=== PATIENT | female | born 1960 | race African-American/Black ===

== ENCOUNTER 2016-12-14 09:25 | Emergency (ER) | payer MEDICAID ==
[2016-12-14 09:29] VITALS: BP 163/92; BMI 36.7
--- NOTE | 2016-12-14 09:41 | DR.GENAD ---
HPI - PCP Primary Care Physician: DR. SINCLAIR - Complaint/Symptoms Chief Complaint Doctors Comments: Patient admits to chronic low back pain for minimal two years, presently on cyclobenzapin for muscle relaxant. She also complains of chronic rib fractures of the left side. Chief Complaint:: PATIENT C/O LEFT HIP,BACK AND SIDE PAIN. THAT HAS BEEN HURTING FOR A WHILE - Source History Provided: Patient - Mode of Arrival Mode of Arrival: Ambulatory - Timing Onset of Chief Complaint: 08/25/16 PMH - PMH Past Medical History: Yes Past Medical History: Asthma, Diabetes, Headaches, Hypertension Past Surgical History: Yes Surgical History: Appendectomy, PICKLE PUMPER Surgery - Family History History of Family Medical Conditions: Yes Family Medical History: Diabetes Mellitus, Cancer, [place], Coronary Artery Disease, Heart Failure, Sudden Cardiac , Hypertension - Social History Does patient currently use any type of tobacco product: No Have you used tobacco products in the last 12 months: No Type of Tobacco Use: None Does any household member use tobacco: No Alcohol Use: None Do you use any recreational Drugs:: No Lives With: Family Lives Where: Home - infectious screening In the last 2 months have you had wt loss of >10#?: NO Have you had fever, night sweats or hemotysis?: No Have you traveled outside the country in the last 6 months?: No Isolation: Standard ROS - Review of Systems Constitutional: No Symptoms Reported Eyes: No Symptoms Reported ENTM: No Symptoms Reported Respiratoy: No Symptoms Reported Cardiovascular: No Symptoms Reported Gastrointestinal/Abdominal: No Symptoms Reported Genitourinary: No Symptoms Reported Neurological: No Symptoms Reported Musculoskeletal: Back Pain Integumentary: No Symptoms Reported Hematologic/Lymphatic: No Symptoms Reported Endocrine: No Symptoms Reported Psychiatric: No Symptoms Reported All Other Systems: Reviewed and Negative PE - Vital Signs Vitals: Temperature 98.9 F Pulse Rate 76 Respiratory Rate 20 Blood Pressure [Right Arm] 172/82 Blood Pressure [Left Arm] 176/80 Blood Pressure 163/92 O2 Sat by Pulse Oximetry 99 - General Limitations: No Limitations General Appearance: Alert, In No Apparent Distress - Head Head Exam: Normal Inspection, Atraumatic - Eyes Eye exam: Normal Appearance, PERRL, EOMI - ENT ENT Exam: Normal Exam External Ear Exam: Normal External Inspection TM/Canal Exam: Bilateral Normal Nose Exam: Normal Nose Exam Mouth Exam: Normal Inspection - Neck Neck Exam: Normal Inspection - Chest Chest Inspection: Normal Inspection - Respiratory Respiratory Exam: Normal Lung Sounds Bilat Respiratory Exam: Bilateral Clear to Auscultation - Cardiovascular Cardiovascular Exam: Regular Rate, Normal Rhythm - Abdominal Exam Abdominal Exam: Normal Inspection Abdominal Tenderness: negative: RUQ, RLQ, LUQ, LLQ, Epigastrium, Suprapubic, Diffuse, Mild, Moderate, Severe, Other - Extremities Extremities Exam: Normal Inspection - Back Back Exam: Vertebral Tenderness (low lumbar) - Neurologic Neurological Exam: Alert, Oriented X3, CN II-XII Intact - Psychiatric Psychiatric Exam: Normal Affect - Skin Skin Exam: Warm, Intact Course - Treatment Treatment: Review previous x ray results c/o osteoarthrisis of Lumbar spine, chronic rib fractures of 4-7. - Discharge Plan Condition: Stable - Follow ups/Referrals Follow ups/Referrals: BERNARDO FLOREZ [Primary Care Provider] - 3 days - Instructions
[2016-12-14] MEDS ORDERED: TORADOL 60 MG VIAL IM ONE (09:48)
[2016-12-14] MEDS ORDERED: TORADOL 60 MG VIAL ONE (09:56)
== END 2016-12-14 10:27 | disposition home or self-care (01) ==
LOC: ER 09:25
DX: M25.552 Pain in left hip (principal); M54.5 Low back pain; M19.90 Unspecified osteoarthritis, unspecified site
CPT/HCPCS: 96372; 99282; J1885

== ENCOUNTER → 2016-12-26 | Outpatient (CLI) | payer MEDICAID ==
[2016-11-22 21:12] VITALS: BP 172/82
--- NOTE | 2016-12-26 11:24 | MG ---
Examination: Bilateral screening mammogram. Clinical history: Routine screening. Technique: Digital CC and MLO views of both breasts were obtained. Computer aided detection analysis was performed and used during the interpretation. Comparison: 12/24/2015. Findings: The breasts are composed of scattered fibroglandular densities. Benign-appearing calcifications are noted in the breasts bilaterally. A biopsy marking clip is present in the left breast. No suspicious mass, area of architectural distortion or suspicious cluster of microcalcifications is noted. Impression: 1. No mammographic evidence of malignancy. BI-RADS category 2-benign findings. Recommend routine annual screening mammogram. Diagnostic CAD was utilized and reviewed. * 0 (ZERO) - ASSESSMENT INCOMPLETE; ADDITIONAL IMAGING IS NEEDED. * 0C - ASSESSMENT INCOMPLETE, NEEDS ADDITIONAL IMAGING EVALUATION AND/OR PRIOR MAMMOGRAMS FOR COMPAR JUJU. * 1/1 (ONE) - NEGATIVE. * 2/II (TWO) - BENIGN FINDINGS. * 3/III (THREE) - PROBABLY BENIGN FINDING; SHORT INTERVAL FOLLOW-UP SUGGESTED. * 4/IV (FOUR) - SUSPICIOUS ABNORMALITY; BIOPSY SHOULD BE CONSIDERED. * 5/V - HIGHLY SUSPICIOUS OF MALIGNANCY; BIOPSY SHOULD BE PERFORMED. * 6/IV - KNOWN BIOPSY PROVEN MALIGNANCY-APPROPRIATE ACTION SHOULD BE TAKEN. A NEGATIVE X-RAY REPORT SHOULD NOT DELAY BIOPSY IF A DOMINANT OR CLINICALLY SUSPICIOUS MASS IS PRESENT; 4 TO 8 PERCENT OF CANCERS ARE NOT IDENTIFIED BY X-RAY. A NEGATIVE REPORT MAY REINFORCE THE CLINICAL IMPRESSION. ADENOSIS AND DENSE BREASTS MAY OBSCURE AN UNDERLYING NEOPLASM. Reported By:
== END ==
LOC: RAD 08:49
PROVIDERS: ATTEND Specialist
DX: Z12.31 Encounter for screening mammogram for malignant neoplasm of breast (principal)
CPT/HCPCS: 77067

== ENCOUNTER → 2017-01-11 | Outpatient (CLI) | payer MEDICAID ==
[2016-12-14 09:29] VITALS: BP 163/92
[2017-01-11 10:37] LABS: BASOPHILS # (AUTO) 0.1 X10^3/uL (0.0-0.1); EOSINOPHILS # (AUTO) 0.3 x10^3/uL (0.0-0.2); EOSINOPHILS % (AUTO) 3.8 % (0.9-2.9); HEMATOCRIT 33.4 % (36.0-47.0); HEMOGLOBIN 10.8 g/dL (12.0-16.0); LYMPHOCYTES # (AUTO) 2.5 X10^3/uL (1.3-2.9); LYMPHOCYTES % (AUTO) 37.5 % (21.0-51.0); MEAN CORPUSCULAR HEMOGLOBIN 24.6 pg (27.0-34.0); MEAN CORPUSCULAR HGB CONC 32.3 g/dL (33.0-35.0); MEAN CORPUSCULAR VOLUME 76.2 fL (80.0-100.0); MEAN PLATELET VOLUME 9.5 fL (7.4-11.0); MONOCYTES # (AUTO) 0.6 x10^3/uL (0.3-0.8); MONOCYTES % (AUTO) 9.3 % (0.0-13.0); NEUTROPHILS # (AUTO) 3.3 x10^3/uL (2.2-4.8); NEUTROPHILS % (AUTO) 48.4 % (42.0-75.0); PLATELET COUNT 353 X10^3/uL (150.0-450.0); RED BLOOD COUNT 4.38 X10^6/uL (3.5-5.4); RED CELL DISTRIBUTION WIDTH 17.3 % (11.6-16.5); WHITE BLOOD COUNT 6.7 X10^3/uL (3.6-10.0)
[2017-01-11 10:37] LABS: BILIRUBIN,URINE NEGATIVE (NEGATIVE); BLOOD/HEMOGLOBIN,URINE NEGATIVE (NEGATIVE); GLUCOSE, URINE NEGATIVE (NEGATIVE); KETONES,URINE NEGATIVE (NEGATIVE); LEUKOCYTE ESTERASE ,URINE 2+ (NEGATIVE); NITRITES,URINE NEGATIVE (NEGATIVE); PROTEIN,URINE 1+ (NEGATIVE); UROBILINOGEN,URINE NORMAL (NORMAL)
[2017-01-11 10:40] LABS: SERUM PREGNANCY TEST, QUAL NEGATIVE <10 mIU/mL
--- NOTE | 2017-01-11 10:46 | RAD ---
HISTORY: Preop hysterectomy Study: Chest two views Comparison: November 03, 2016 Findings: The trachea is midline. The cardiac silhouette is unremarkable. The lungs are clear without focal infiltrate or effusion. The bony thorax is unremarkable. IMPRESSION: 1. No acute cardiopulmonary disease. Reported By:
[2017-01-11 10:47] LABS: APPEARANCE,URINE CLEAR (CLEAR); COLOR,URINE YELLOW (YELLOW); RBC,URINE NONE SEEN /HPF (NEGATIVE)
[2017-01-11 10:48] LABS: BACTERIA,URINE 1+ /HPF (NEGATIVE); SQUAMOUS EPITHELIAL CELL,UR MANY /HPF (NEGATIVE)
[2017-01-11 10:52] LABS: BLOOD UREA NITROGEN 14 mg/dL (7-18); CALCIUM 8.8 mg/dL (8.5-10.1); CARBON DIOXIDE 30.9 mmol/L (21-32); CHLORIDE 104 mmol/L (98-107); COR NA(FOR HYPERGLY) 143 mmol/L (136-145); CREATININE 0.93 mg/dL (0.55-1.02); GLUCOSE 174 mg/dL (65-99); SODIUM 141 mmol/L (136-145); eGFR BLACK RACES > 60 (>60); eGFR NON BLACK RACES > 60 (>60)
[2017-01-11 11:16] LABS: HYPOCHROMASIA SLIGHT; PLATELET MORPHOLOGY COMMENT NORMAL (NORMAL)
== END ==
LOC: LAB 09:17
PROVIDERS: ATTEND Specialist
DX: Z01.818 Encounter for other preprocedural examination (principal); Z01.810 Encounter for preprocedural cardiovascular examination; Z01.811 Encounter for preprocedural respiratory examination; R10.2 Pelvic and perineal pain; D25.9 Leiomyoma of uterus, unspecified
CPT/HCPCS: 36415; 71020; 80048; 81001; 84703; 85025; 85610; 85730; 86850; 86900; 86901; 93005; 93010

== ENCOUNTER 2017-01-16 06:19 | Inpatient (IN) | payer MEDICAID ==
[2017-01-16] MEDS ORDERED: NS 50 ML IV + SPIKE MINIBAG* 50 ML IV ONE (06:29)
[2017-01-16] MEDS ORDERED: D5 1/2 NS 1000 ML 1,000 ML IV ONE (06:30)
[2017-01-16] MEDS ORDERED: ANCEF VIAL 1 GM ONE (06:30)
[2017-01-16] MEDS ORDERED: FENTANYL INJ 250 mcg ONE (06:31)
[2017-01-16] MEDS ORDERED: DURAMORPH ONE (06:33)
[2017-01-16] MEDS ORDERED: ZEMURON ONE ×2 (06:33→10:07)
[2017-01-16] MEDS ORDERED: NS 1000 ML 1,000 ML ONE ×2 (06:33→07:50)
[2017-01-16 06:58] VITALS: BMI 36.7
[2017-01-16] MEDS ORDERED: ANCEF VIAL 1 GM 1 GM in NS 50 ML IV + SPIKE MINIBAG* 50 ML IV PRN (06:58)
[2017-01-16] MEDS ORDERED: D5 1/2 NS 1000 ML 1,000 ML IV SCH (06:58)
[2017-01-16 08:17] LABS: BILIRUBIN,URINE NEGATIVE (NEGATIVE); BLOOD/HEMOGLOBIN,URINE NEGATIVE (NEGATIVE); GLUCOSE, URINE NEGATIVE (NEGATIVE); KETONES,URINE NEGATIVE (NEGATIVE); LEUKOCYTE ESTERASE ,URINE NEGATIVE (NEGATIVE); NITRITES,URINE NEGATIVE (NEGATIVE); PROTEIN,URINE NEGATIVE (NEGATIVE); UROBILINOGEN,URINE NORMAL (NORMAL)
[2017-01-16 08:26] LABS: APPEARANCE,URINE CLEAR (CLEAR); COLOR,URINE YELLOW (YELLOW); RBC,URINE NONE SEEN /HPF (NEGATIVE); SQUAMOUS EPITHELIAL CELL,UR RARE /HPF (NEGATIVE)
[2017-01-16 08:27] LABS: AMORPHOUS SEDIMENT,UR 1+ /HPF (NEGATIVE); BACTERIA,URINE NEGATIVE /HPF (NEGATIVE)
[2017-01-16] MEDS ORDERED: NS IRRIGATION 1000 ML 1,000 ML IR ONE (09:05)
[2017-01-16] MEDS ORDERED: HumuLIN R SUBCUT PRN (09:14)
[2017-01-16] MEDS ORDERED: ZOFRAN INJ 4 MG VIAL IVP PRN ×2 (09:39→10:09)
[2017-01-16] MEDS ORDERED: REGLAN INJ 10 MG VIAL IVP PRN (09:39)
[2017-01-16] MEDS ORDERED: PHENERGAN INJ 25 MG IVP PRN (09:39)
[2017-01-16] MEDS ORDERED: BENADRYL INJ 50 MG VIAL IVP PRN ×2 (09:39→10:09)
[2017-01-16] MEDS ORDERED: DILAUDID INJ IVP PRN (09:39)
[2017-01-16] MEDS ORDERED: DILAUDID INJ ONE (09:44)
[2017-01-16] MEDS ORDERED: DILAUDID INJ IVP ONE ×2 (09:47→10:04)
[2017-01-16] MEDS ORDERED: NS 1000 ML 1,000 ML IV SCH (10:00)
[2017-01-16] MEDS ORDERED: VERSED ONE (10:07)
[2017-01-16] MEDS ORDERED: QUELICIN (OR ANECTINE) ONE (10:07)
[2017-01-16] MEDS ORDERED: REGLAN INJ 10 MG VIAL ONE (10:07)
[2017-01-16] MEDS ORDERED: SUPRANE IN ONE (10:07)
[2017-01-16] MEDS ORDERED: DIPRIVAN VIAL ONE (10:07)
[2017-01-16] MEDS ORDERED: NEOSTIGMINE INJ ONE (10:07)
[2017-01-16] MEDS ORDERED: XYLOCAINE 2 % (PLAIN) ONE (10:07)
[2017-01-16] MEDS ORDERED: EPHEDRINE SULFATE INJ ONE (10:07)
[2017-01-16] MEDS ORDERED: ROBINUL ONE (10:07)
[2017-01-16] MEDS ORDERED: TORADOL 30 MG VIAL IVP PRN (10:09)
[2017-01-16] MEDS: NS 1000 ML 1,000 ML IV SCH ×2 (13:23→21:02)
[2017-01-16] MEDS ORDERED: MORPHINE SULFATE PCA 30 MG IVP PRN (13:32)
[2017-01-16] MEDS ORDERED: SNACK - Diabetic Appropriate PO SCH (20:00)
[2017-01-16] MEDS: SNACK - Diabetic Appropriate PO SCH (21:05)
[2017-01-16] MEDS: HumuLIN R SUBCUT PRN (21:06)
[2017-01-17 05:07] LABS: BASOPHILS % (AUTO) 0.4 % (0.2-1.0); EOSINOPHILS # (AUTO) 0.1 x10^3/uL (0.0-0.2); EOSINOPHILS % (AUTO) 1.5 % (0.9-2.9); HEMATOCRIT 29.7 % (36.0-47.0); HEMOGLOBIN 9.5 g/dL (12.0-16.0); LYMPHOCYTES # (AUTO) 1.5 X10^3/uL (1.3-2.9); MEAN CORPUSCULAR HEMOGLOBIN 24.9 pg (27.0-34.0); MEAN CORPUSCULAR HGB CONC 32.1 g/dL (33.0-35.0); MEAN CORPUSCULAR VOLUME 77.6 fL (80.0-100.0); MEAN PLATELET VOLUME 9.9 fL (7.4-11.0); MONOCYTES # (AUTO) 1.1 x10^3/uL (0.3-0.8); MONOCYTES % (AUTO) 12.7 % (0.0-13.0); NEUTROPHILS % (AUTO) 68.4 % (42.0-75.0); PLATELET COUNT 287 X10^3/uL (150.0-450.0); RED BLOOD COUNT 3.83 X10^6/uL (3.5-5.4); RED CELL DISTRIBUTION WIDTH 18.1 % (11.6-16.5); WHITE BLOOD COUNT 8.8 X10^3/uL (3.6-10.0)
[2017-01-17 05:08] LABS: BLOOD UREA NITROGEN 14 mg/dL (7-18); CALCIUM 7.3 mg/dL (8.5-10.1); CARBON DIOXIDE 23.8 mmol/L (21-32); CHLORIDE 107 mmol/L (98-107); COR NA(FOR HYPERGLY) 144 mmol/L (136-145); CREATININE 1.03 mg/dL (0.55-1.02); GLUCOSE 228 mg/dL (65-99); SODIUM 141 mmol/L (136-145); eGFR BLACK RACES > 60 (>60); eGFR NON BLACK RACES 59 (>60)
[2017-01-17 05:46] LABS: ANISOCYTOSIS SLIGHT; HYPOCHROMASIA SLIGHT; MICROCYTOSIS SLIGHT; PLATELET MORPHOLOGY COMMENT NORMAL (NORMAL)
[2017-01-17] MEDS: NS 1000 ML 1,000 ML IV SCH ×2 (06:08→18:19)
[2017-01-17] MEDS: HumuLIN R SUBCUT PRN ×4 (06:09→21:34)
[2017-01-17] MEDS ORDERED: BACTROBAN CREAM ONE (07:43)
[2017-01-17] MEDS ORDERED: MOTRIN TAB 800 MG PO PRN (07:50)
[2017-01-17] MEDS: BACTROBAN OINT TOP SCH ×2 (08:06→14:20)
[2017-01-17] MEDS: TENORMIN PO SCH (10:10)
[2017-01-17] MEDS: COLACE CAP 100 MG PO SCH ×2 (10:10→21:34)
[2017-01-17] MEDS: HYDROCHLOROTHIAZIDE 12.5 MG CAP PO SCH (10:10)
[2017-01-17] MEDS: NORVASC TAB 10 MG PO SCH (10:11)
[2017-01-17] MEDS: PERCOCET TAB 5/325 MG PO PRN ×2 (12:03→18:25)
[2017-01-17] MEDS: GLUCOPHAGE PO SCH (17:10)
[2017-01-17] MEDS ORDERED: GLUCOPHAGE ONE (17:17)
[2017-01-17] MEDS: SNACK - Diabetic Appropriate PO SCH (21:36)
[2017-01-18] MEDS: BACTROBAN OINT TOP SCH ×2 (00:15→05:54)
[2017-01-18] MEDS: PERCOCET TAB 5/325 MG PO PRN ×2 (01:05→08:38)
[2017-01-18 05:48] LABS: HEMATOCRIT 29.2 % (36.0-47.0); HEMOGLOBIN 9.4 g/dL (12.0-16.0)
[2017-01-18] MEDS ORDERED: GLUCOPHAGE ONE (08:28)
[2017-01-18] MEDS: HYDROCHLOROTHIAZIDE 12.5 MG CAP PO SCH (08:37)
[2017-01-18] MEDS: NORVASC TAB 10 MG PO SCH (08:37)
[2017-01-18] MEDS: GLUCOPHAGE PO SCH (08:38)
[2017-01-18] MEDS: COLACE CAP 100 MG PO SCH (08:38)
[2017-01-18] MEDS: TENORMIN PO SCH (08:40)
[2017-01-18 12:47] VITALS: BP 181/82
== END 2017-01-18 12:30 | disposition home health service (06) | DRG 743 ==
LOC: MED/SURG 06:19
PROVIDERS: ADMIT Specialist; ATTEND Specialist
PROC: 0UTC0ZZ Resection of Cervix, Open Approach (ICD-10-PCS; 2017-01-16)
PROC: 0UT20ZZ Resection of Bilateral Ovaries, Open Approach (ICD-10-PCS; 2017-01-16)
PROC: 0UT70ZZ Resection of Bilateral Fallopian Tubes, Open Approach (ICD-10-PCS; 2017-01-16)
PROC: 0UT90ZZ Resection of Uterus, Open Approach (ICD-10-PCS; principal; 2017-01-16 07:30)
DX: D25.9 Leiomyoma of uterus, unspecified (principal); R10.2 Pelvic and perineal pain
CPT/HCPCS: 36415; 80048; 81001; 85014; 85018; 85025; 94760; A4222; J0330; J0690; J1170; J1815; J1885; J2001; J2250; J2271; J2710; J2765; J3010; J3490; J7042

== ENCOUNTER 2017-01-30 23:14 | Emergency (ER) | payer MEDICAID ==
[2017-01-30 23:22] VITALS: BP 194/89; BMI 35.9
--- NOTE | 2017-01-31 00:09 | DR.GENAD ---
HPI - PCP Primary Care Physician: Florez - Complaint/Symptoms Chief Complaint Doctors Comments: Patient had a hysterectomy two weeks ago; today sutures were removed; tonight the steri-strips came loose; now there is seperation of suture margins. Chief Complaint:: "I had a hysterectomy about two weeks ago and they just took the moiz out today. It has been draining a lot and it has came open." - Source History Provided: Patient - Mode of Arrival Mode of Arrival: Ambulatory - Timing Onset of Chief Complaint: 01/30/17 PMH - PMH Past Medical History: Yes Past Medical History: Asthma, Diabetes, Headaches, Hypertension Past Surgical History: Yes Surgical History: Appendectomy, Hysterectomy - Family History History of Family Medical Conditions: Yes Family Medical History: Diabetes Mellitus, Cancer, [place], Coronary Artery Disease, Sudden Cardiac , Hypertension - Social History Does patient currently use any type of tobacco product: No Have you used tobacco products in the last 12 months: No Type of Tobacco Use: None Does any household member use tobacco: No Alcohol Use: None Do you use any recreational Drugs:: No Lives With: Spouse Lives Where: Home - infectious screening In the last 2 months have you had wt loss of >10#?: NO Have you had fever, night sweats or hemotysis?: No Have you traveled outside the country in the last 6 months?: No Isolation: Standard ROS - Review of Systems Constitutional: No Symptoms Reported Eyes: No Symptoms Reported ENTM: No Symptoms Reported Respiratoy: No Symptoms Reported Cardiovascular: No Symptoms Reported Gastrointestinal/Abdominal: No Symptoms Reported Genitourinary: No Symptoms Reported Neurological: No Symptoms Reported Musculoskeletal: No Symptoms Reported Integumentary: Other (suture seperation) Hematologic/Lymphatic: No Symptoms Reported Endocrine: No Symptoms Reported Psychiatric: No Symptoms Reported All Other Systems: Reviewed and Negative PE - Vital Signs Vitals: Temperature 98.2 F Pulse Rate 84 Respiratory Rate 18 Blood Pressure [Right Arm] 181/82 Blood Pressure [Left Arm] 176/77 Blood Pressure 194/89 O2 Sat by Pulse Oximetry 97 - General Limitations: No Limitations General Appearance: Alert, In No Apparent Distress - Head Head Exam: Normal Inspection, Atraumatic - Eyes Eye exam: Normal Appearance, PERRL, EOMI - ENT ENT Exam: Normal Exam External Ear Exam: Normal External Inspection TM/Canal Exam: Bilateral Normal Nose Exam: Normal Nose Exam Mouth Exam: Normal Inspection Throat Exam: Normal Inspection - Neck Neck Exam: Normal Inspection, Full ROM - Chest Chest Inspection: Normal Inspection - Respiratory Respiratory Exam: Normal Lung Sounds Bilat Respiratory Exam: Bilateral Clear to Auscultation - Cardiovascular Cardiovascular Exam: Regular Rate, Normal Rhythm - Abdominal Exam Abdominal Exam: Normal Inspection, Other (seperation of suture lines from abdominal hysterectomy) Abdominal Tenderness: Mild - Extremities Extremities Exam: Normal Inspection, Full ROM - Back Back Exam: Normal Inspection - Neurologic Neurological Exam: Alert, Oriented X3, CN II-XII Intact - Psychiatric Psychiatric Exam: Normal Affect - Skin Skin Exam: Warm, Dry, Intact - Diagnosis Discharge Problem: Suture, burst Qualifiers: Encounter type: sequela Qualified Code(s): T81.31XS - Disruption of external operation (surgical) wound, not elsewhere classified, sequela - Discharge Plan Condition: Stable - Follow ups/Referrals Follow ups/Referrals: BERNARDO FLOREZ [Primary Care Provider] - 3 days - Instructions
== END 2017-01-31 00:23 | disposition home or self-care (01) ==
LOC: ER 23:14
DX: T81.31XS Disruption of external operation (surgical) wound, not elsewhere classified, sequela (principal)
CPT/HCPCS: 99282

== ENCOUNTER 2017-01-31 14:22 | Emergency (ER) | payer MEDICAID ==
[2017-01-31 14:33] VITALS: BP 179/91; BMI 30.9
--- NOTE | 2017-01-31 14:38 | DR.GENAD ---
HPI - PCP Primary Care Physician: ALEXANDREA STEWART - Complaint/Symptoms Chief Complaint:: PT SENT OVER FROM DR. LECHUGA'S OFFICE FOR TRANSFER OF PT WITH WOUND DEHISENCE.... PT STATES SHE COUGHED ON MONDAY AND SHE FELT A POP AND THAT HER PETE WERE REMOVED ON MONDAY AND SHE WENT TO DR. LECHUGA TODAY .. Self Treatment fo Chief Complaint: PT SEEN IN ER LAST NIGHT WITH C/O OF HER HYSTERECTOMY INCISION SITE OPENED AND HER WOUND WAS CARED OF ACCORDINGLY.. - Nurses notes reviewed Nurses Notes Review: Yes - Source History Provided: Patient, Other - Mode of Arrival Mode of Arrival: Ambulatory - Timing Onset of Chief Complaint: 01/29/17 Came on: Suddenly - Duration Duration: Constant How lon Duration: Days - Location Location: incision abdomin - Severity Severity: Moderate - Modifying Factors Worsens:: cough - Associated Signs and Symptoms Associated Signs and Symptoms: none PMH - PMH Past Medical History: Yes Past Medical History: Asthma, Diabetes, Headaches, Hypertension Past Surgical History: Yes Surgical History: Appendectomy, Hysterectomy - Family History History of Family Medical Conditions: Yes Family Medical History: Diabetes Mellitus, Cancer, [place], Coronary Artery Disease, Sudden Cardiac , Hypertension - Social History Does patient currently use any type of tobacco product: No Have you used tobacco products in the last 12 months: No Type of Tobacco Use: None Does any household member use tobacco: No Alcohol Use: None Do you use any recreational Drugs:: No Lives With: Family Lives Where: Home - infectious screening In the last 2 months have you had wt loss of >10#?: NO Have you had fever, night sweats or hemotysis?: No Have you traveled outside the country in the last 6 months?: No Isolation: Standard ROS - Review of Systems Constitutional: No Symptoms Reported Eyes: No Symptoms Reported ENTM: No Symptoms Reported Respiratoy: No Symptoms Reported Cardiovascular: No Symptoms Reported Gastrointestinal/Abdominal: No Symptoms Reported Genitourinary: No Symptoms Reported Neurological: No Symptoms Reported Musculoskeletal: No Symptoms Reported Integumentary: Wound (10 x 4 cm wound dehiscence) Hematologic/Lymphatic: No Symptoms Reported Endocrine: No Symptoms Reported Psychiatric: No Symptoms Reported All Other Systems: Reviewed and Negative PE - Vital Signs Vitals: Temperature 98.1 F Pulse Rate 72 Respiratory Rate 20 Blood Pressure [Right Arm] 181/82 Blood Pressure [Left Arm] 176/77 Blood Pressure 179/91 O2 Sat by Pulse Oximetry 98 - General Limitations: No Limitations General Appearance: Alert - Head Head Exam: Normal Inspection - Eyes Eye exam: Normal Appearance, EOMI. negative: Scleral Icterus, Conjunctival Injection - ENT ENT Exam: Normal Exam, Other (poor dentition) External Ear Exam: Normal External Inspection - Neck Neck Exam: Normal Inspection, Full ROM, Trachea Midline - Respiratory Respiratory Exam: negative: Accessory Muscle Use, Respiratory Distress - Abdominal Exam Abdominal Exam: Normal Bowel Sounds, Soft, Distention (obesity). negative: Normal Inspection, Tenderness, Guarding - Extremities Extremities Exam: Normal Inspection - Back Back Exam: Normal Inspection - Neurologic Neurological Exam: Alert, Oriented X3, CN II-XII Intact - Psychiatric Psychiatric Exam: Normal Mood - Skin Skin Exam: Normal Color. negative: Intact (10 x 4cm wound dehiscense) Course - Treatment Treatment: 1455: case discussed with Dr. lechuga and wants general surgeon consulted. - Consultation Called: 17:15 Call Returned: 17:15 Consultation Comments: case discussed with Dr. Martinez and will see patient in [facility]. - Diagnosis Discharge Problem: Dehiscence of closure of skin Qualifiers: Encounter type: initial encounter Qualified Code(s): T81.31XA - Disruption of external operation (surgical) wound, not elsewhere classified, initial encounter - Discharge Plan Condition: Stable - Follow ups/Referrals Follow ups/Referrals: RIAN LECHUGA [Primary Care Provider] - 3 days - Instructions - Patient Education Addl Reference Text: Go to [facility] do not eat.
== END 2017-01-31 17:45 | disposition home or self-care (01) ==
LOC: ER 14:33
DX: T81.31XA Disruption of external operation (surgical) wound, not elsewhere classified, initial encounter (principal)
CPT/HCPCS: 99282; 99285

== ENCOUNTER 2017-09-06 13:43 | Emergency (ER) | payer SELFPAY ==
[2017-09-06 13:46] VITALS: BP 183/88; BMI 37.4
--- NOTE | 2017-09-06 14:05 | DR.SOBA ---
HPI - Time Seen Time seen: 14:00 - Primary Care Physician Primary Care Physician: VIKKI - HPI Comment HPI Comment: GETTING WORSE. NO FEVER. SLIGHT CHEST PAIN. COUGH PRODUCTIVE, YELLOW SPUTUM. - Complaints Chief Complaint Doctors Comments: COUGH, WHEEZING AND SOB TIMES E DAYS. Chief Complaint:: PT. C/O SHORTNESS OF BREATH, COUGH, AND WHEEZING X 2 DAYS. - Reviewed Nurses Notes Reviewed: Yes - Source History Provided: Patient - Mode of Arrival Mode of Arrival: Ambulatory - Timing Onset of Chief Complaint: 09/04/17 - Context Onset:: With Light Exertion PE Risk Factors:: None History of:: Asthma Prehospital Care:: None - Modifying Factors Worsens:: Nothing Improves:: Nothing - Associated Signs and Symptoms Associated Signs and Symptoms: Wheeze, Cough, Nasal Congestion, Chest Pain - If Chest Pain Quality: Sharp Location: Chest Wall - If Cough Cough: Productive, Yellow PMH - PMH Past Medical History: Yes Past Medical History: Asthma, Diabetes, Headaches, Hypertension Past Surgical History: Yes Surgical History: Appendectomy, Hysterectomy - Family History History of Family Medical Conditions: Yes Family Medical History: Diabetes Mellitus, Cancer, [place], Coronary Artery Disease, Sudden Cardiac , Hypertension - Social History Does patient currently use any type of tobacco product: No Have you used tobacco products in the last 12 months: No Type of Tobacco Use: None Does any household member use tobacco: No Alcohol Use: None Do you use any recreational Drugs:: No Lives With: Family Lives Where: Home - infectious screening In the last 2 months have you had wt loss of >10#?: NO Have you had fever, night sweats or hemotysis?: No Have you traveled outside the country in the last 6 months?: No Isolation: Standard ROS - Review of Systems Constitutional: No Symptoms Reported. negative: Chills, Fever Eyes: No Symptoms Reported ENTM: Nose Congestion. negative: Ear Pain, Nose Discharge, Throat Pain Respiratoy: Productive Cough, Short of Breath, Wheezing. negative: Hemoptysis Cardiovascular: Chest Pain Gastrointestinal/Abdominal: No Symptoms Reported Genitourinary: No Symptoms Reported Neurological: No Symptoms Reported Musculoskeletal: No Symptoms Reported Integumentary: No Symptoms Reported Hematologic/Lymphatic: No Symptoms Reported Endocrine: No Symptoms Reported All Other Systems: Reviewed and Negative PE - Vital Signs Vitals: Temperature 97 F Pulse Rate 62 Respiratory Rate 17 Blood Pressure [Right Arm] 181/82 Blood Pressure [Left Arm] 176/77 Blood Pressure 183/88 O2 Sat by Pulse Oximetry 95 - General Limitations: No Limitations General Appearance: Alert - Head Head Exam: Normal Inspection - Eyes Eye exam: Normal Appearance, PERRL. negative: Scleral Icterus, Conjunctival Injection - ENT ENT Exam: Normal External Ear Exam - Neck Neck Exam: Trachea Midline. negative: Tenderness, Meningismus, Lymphadenopathy - Chest Chest Inspection: Symmetric Chest Wall Rise - Respiratory Respiratory Exam: Normal Lung Sounds Bilat Respiratory Exam: Bilateral Wheezing, Bilateral Rhonchi, Upper Wheezing, Upper Rhonchi, Lower Wheezing, Lower Rhonchi - Cardiovascular Cardiovascular Exam: Regular Rate, Normal Rhythm, Normal Heart Sounds - Abdominal Exam Abdominal Exam: Normal Bowel Sounds, Soft. negative: Tenderness - Extremities Extremities Exam: Normal Inspection - Back Back Exam: Normal Inspection - Neurologic Neurological Exam: Alert, Oriented X3 - Psychiatric Psychiatric Exam: Normal Affect, Normal Mood - Skin Skin Exam: Normal Color MDM - Differential Diagnosis Differential Diagnosis: Bronchitis, Pneumonia Course - Treatment Treatment: SEE ORDERS - Education/Counseling Education/Counseling: Patient, Education Educated On: Diagnosis, Needs for Follow Up ROR - Labs Reviewed Laboratory Results Reviewed?: Yes Result Diagrams: 09/06/17 14:20 09/06/17 14:20 Laboratory: WBC 6.4 X10^3/uL (3.6-10.0) 09/06/17 14:20 RBC 4.32 X10^6/uL (3.5-5.4) 09/06/17 14:20 Hgb 10.7 g/dL (12.0-16.0) L 09/06/17 14:20 Hct 32.7 % (36.0-47.0) L 09/06/17 14:20 MCV 75.7 fL (80.0-100.0) L 09/06/17 14:20 MCH 24.8 pg (27.0-34.0) L 09/06/17 14:20 MCHC 32.8 g/dL (33.0-35.0) L 09/06/17 14:20 RDW 17.9 % (11.6-16.5) H 09/06/17 14:20 Plt Count 328 X10^3/uL (150.0-450.0) 09/06/17 14:20 Plt Count Comment Adequate (ADEQUATE) 09/06/17 14:20 MPV 9.1 fL (7.4-11.0) 09/06/17 14:20 Neut % 51.6 % (42.0-75.0) 09/06/17 14:20 Lymph % 32.6 % (21.0-51.0) 09/06/17 14:20 [place] % 10.4 % (0.0-13.0) 09/06/17 14:20 Eos % 4.7 % (0.9-2.9) H 09/06/17 14:20 Baso % 0.7 % (0.2-1.0) 09/06/17 14:20 Neut # 3.3 x10^3/uL (2.2-4.8) 09/06/17 14:20 Lymph # 2.1 X10^3/uL (1.3-2.9) 09/06/17 14:20 [place] # 0.7 x10^3/uL (0.3-0.8) 09/06/17 14:20 Eos # 0.3 x10^3/uL (0.0-0.2) H 09/06/17 14:20 Baso # 0.0 X10^3/uL (0.0-0.1) 09/06/17 14:20 Absolute Nucleated RBC 0.1 /100WBC 09/06/17 14:20 Plt Morphology Comment Normal (NORMAL) 09/06/17 14:20 RBC Morphology Abnormal (NORMAL) A 09/06/17 14:20 Hypochromasia Slight A 09/06/17 14:20 Anisocytosis Slight A 09/06/17 14:20 Microcytosis Slight A 09/06/17 14:20 Tear Drop Cells Noted 09/06/17 14:20 Sodium 143 mmol/L (136-145) 09/06/17 14:20 Corrected Sodium TNP 09/06/17 14:20 Potassium 3.9 mmol/L (3.5-5.1) 09/06/17 14:20 Chloride 106 mmol/L (98-107) 09/06/17 14:20 Carbon Dioxide 29.0 mmol/L (21-32) 09/06/17 14:20 BUN 12 mg/dL (7-18) 09/06/17 14:20 Creatinine 0.81 mg/dL (0.55-1.02) 09/06/17 14:20 Est GFR (MDRD) Af Amer > 60 (>60) 09/06/17 14:20 Est GFR (MDRD) Non-Af > 60 (>60) 09/06/17 14:20 Glucose 102 mg/dL (65-99) H 09/06/17 14:20 Calcium 8.7 mg/dL (8.5-10.1) 09/06/17 14:20 Corrected Calcium TNP 09/06/17 14:20 Total Bilirubin 0.20 mg/dL (0.2-1.0) 09/06/17 14:20 AST 26 Units/L (15-37) 09/06/17 14:20 ALT 46 Units/L (12-78) 09/06/17 14:20 Alkaline Phosphatase 96 Units/L (46-116) 09/06/17 14:20 Creatine Kinase 141 Units/L (26-192) 09/06/17 14:20 CK-MB (CK-2) 1.4 ng/mL (0-4.0) 09/06/17 14:20 CK/CKMB % Calc 1.0 % (<4) 09/06/17 14:20 Troponin I < 0.02 ng/mL (0-1.5) 09/06/17 14:20 B-Natriuretic Peptide 80.7 pg/mL (0-79) H 09/06/17 14:20 Total Protein 7.5 g/dL (6.4-8.2) 09/06/17 14:20 Albumin 3.8 g/dL (3.4-5.0) 09/06/17 14:20 Globulin 3.7 g/dL (2.5-4.5) 09/06/17 14:20 Albumin/Globulin Ratio 1.0 Ratio (1.1-2.1) L 09/06/17 14:20 Specimen Type Clean catch urine 09/06/17 14:46 Urine Color Yellow (YELLOW) 09/06/17 14:46 Urine Appearance Clear (CLEAR) 09/06/17 14:46 Urine pH 8.0 (5.0 - 8.0) 09/06/17 14:46 Ur Specific [place] 1.010 (1.000-1.030) 09/06/17 14:46 Urine Protein Negative (NEGATIVE) 09/06/17 14:46 Urine Glucose (UA) Negative (NEGATIVE) 09/06/17 14:46 Urine Ketones Negative (NEGATIVE) 09/06/17 14:46 Urine Occult Blood Negative (NEGATIVE) 09/06/17 14:46 Urine Nitrite Negative (NEGATIVE) 09/06/17 14:46 Urine Bilirubin Negative (NEGATIVE) 09/06/17 14:46 Urine Urobilinogen Normal (NORMAL) 09/06/17 14:46 Ur Leukocyte Esterase 2+ (NEGATIVE) 09/06/17 14:46 Urine RBC None seen /HPF (NEGATIVE) 09/06/17 14:46 Urine WBC 0-5 /HPF (NEGATIVE) 09/06/17 14:46 Ur Squamous Epith Cells Rare /HPF (NEGATIVE) 09/06/17 14:46 Other Crystals Moderate /HPF (NEGATIVE) 09/06/17 14:46 Urine Bacteria Negative /HPF (NEGATIVE) 09/06/17 14:46 Ur Culture Indicated? No/not indicated 09/06/17 14:46 - XRAY XRAY Interpreted by: Radiologist XRAY Findings: REPORT DISCUSS WITH PATIENT. - Diagnosis Discharge Problem: Bronchitis - Discharge Plan Disposition: 01 HOME, SELF-CARE Condition: Stable Prescriptions: Azithromycin [Zithromax] 1 dose PO DAILY #6 tab Benzonatate [TESSALON PERLES *] 200 mg PO TID PRN #30 cap PRN Reason: Cough Methylprednisolone Dosepak 4Mg [MEDROL DOSEPAK (4 mg tab x 21)] 1 angel PO ONCE # 1 angel - Follow ups/Referrals Follow ups/Referrals: BERNARDO FLOREZ [Primary Care Provider] - 3 days - Instructions Instructions: Acute Bronchitis, [id number] Additional Instructions: RETURN TO ED IF WORSE.
--- NOTE | 2017-09-06 14:22 | RAD ---
Examination: Portable AP chest History: Chest pain and wheezing Comparison reference January 11, 2017. Findings: Continued normal heart size. Pulmonary vascular distention is now present without evidence for consolidation, pulmonary edema or pneumothorax. Impression: Mild pulmonary vascular congestion, some of which may be related to portable technique. N o change otherwise. Reported By:
[2017-09-06 14:30] LABS: BASOPHILS % (AUTO) 0.7 % (0.2-1.0); EOSINOPHILS # (AUTO) 0.3 x10^3/uL (0.0-0.2); EOSINOPHILS % (AUTO) 4.7 % (0.9-2.9); HEMATOCRIT 32.7 % (36.0-47.0); HEMOGLOBIN 10.7 g/dL (12.0-16.0); LYMPHOCYTES # (AUTO) 2.1 X10^3/uL (1.3-2.9); LYMPHOCYTES % (AUTO) 32.6 % (21.0-51.0); MEAN CORPUSCULAR HEMOGLOBIN 24.8 pg (27.0-34.0); MEAN CORPUSCULAR HGB CONC 32.8 g/dL (33.0-35.0); MEAN CORPUSCULAR VOLUME 75.7 fL (80.0-100.0); MEAN PLATELET VOLUME 9.1 fL (7.4-11.0); MONOCYTES # (AUTO) 0.7 x10^3/uL (0.3-0.8); MONOCYTES % (AUTO) 10.4 % (0.0-13.0); NEUTROPHILS # (AUTO) 3.3 x10^3/uL (2.2-4.8); NEUTROPHILS % (AUTO) 51.6 % (42.0-75.0); PLATELET COUNT 328 X10^3/uL (150.0-450.0); RED BLOOD COUNT 4.32 X10^6/uL (3.5-5.4); RED CELL DISTRIBUTION WIDTH 17.9 % (11.6-16.5); WHITE BLOOD COUNT 6.4 X10^3/uL (3.6-10.0)
[2017-09-06 14:48] LABS: B-TYPE NATRIURETIC PEPTIDE 80.7 pg/mL (0-79); BLOOD UREA NITROGEN 12 mg/dL (7-18); CALCIUM 8.7 mg/dL (8.5-10.1); CHLORIDE 106 mmol/L (98-107); CREATININE 0.81 mg/dL (0.55-1.02); SODIUM 143 mmol/L (136-145); TROPONIN I < 0.02 ng/mL (0-1.5); eGFR BLACK RACES > 60 (>60); eGFR NON BLACK RACES > 60 (>60)
[2017-09-06 14:52] LABS: BILIRUBIN,URINE NEGATIVE (NEGATIVE); BLOOD/HEMOGLOBIN,URINE NEGATIVE (NEGATIVE); GLUCOSE, URINE NEGATIVE (NEGATIVE); KETONES,URINE NEGATIVE (NEGATIVE); LEUKOCYTE ESTERASE ,URINE 2+ (NEGATIVE); NITRITES,URINE NEGATIVE (NEGATIVE); PROTEIN,URINE NEGATIVE (NEGATIVE); UROBILINOGEN,URINE NORMAL (NORMAL)
[2017-09-06 14:53] LABS: ANISOCYTOSIS SLIGHT; HYPOCHROMASIA SLIGHT; MICROCYTOSIS SLIGHT; PLATELET MORPHOLOGY COMMENT NORMAL (NORMAL)
[2017-09-06 14:54] LABS: TEAR DROP CELLS NOTED
[2017-09-06 15:01] LABS: APPEARANCE,URINE CLEAR (CLEAR); BACTERIA,URINE NEGATIVE /HPF (NEGATIVE); COLOR,URINE YELLOW (YELLOW); OTHER CRYSTALS,URINE MODERATE /HPF (NEGATIVE); RBC,URINE NONE SEEN /HPF (NEGATIVE); SQUAMOUS EPITHELIAL CELL,UR RARE /HPF (NEGATIVE)
[2017-09-06 15:03] LABS: ALANINE AMINOTRANSFERASE 46 Units/L (12-78); ALBUMIN 3.8 g/dL (3.4-5.0); ALKALINE PHOSPHATASE 96 Units/L (46-116); ASPARTATE AMINO TRANSFERASE 26 Units/L (15-37); CREATINE KINASE 141 Units/L (26-192); CREATINE KINASE MB 1.4 ng/mL (0-4.0); TOTAL PROTEIN 7.5 g/dL (6.4-8.2)
== END 2017-09-06 15:47 | disposition home or self-care (01) ==
LOC: ER 13:50
DX: J40 Bronchitis, not specified as acute or chronic (principal)
CPT/HCPCS: 36415; 71010; 80053; 81001; 82550; 82553; 83880; 84484; 85025; 93005; 93010; 99283

== ENCOUNTER 2019-05-16 19:44 | Inpatient (IN) ==
--- NOTE | 2019-05-16 20:15 | DR.NAUSEAF ---
HPI Time Seen Time Seen by Provider: 05/16/19 20:14 Primary Care Physician Primary Care Physician: NONE Complaints Chief Complaint Doctors Comments: pt presented for n/v and abd pn. Pt reports having worsening abd pn with n/v and chills today. She was seen her last night and abd XR was unremarkable. Today she reports having intermittent lower abdomi nal pain with large hernia that has been present for a long time. The pain is sharp 8/10 and her she has not had any BM in the last day. She reports prior BTL/Hyst surgery prior to developing the surgery. Denies CP, SOB, blood in stool. CT a/p 03/2019 showed large pannus with ventral hernia with transverse colon no strangulation. Chief Complaint:: "I HAVE PAIN IN MY STOMACH AND I AM SICK ND THROWING UP" Reviewed Nurses Notes Reviewed: Yes Source History Provided: Patient Mode of Arrival Mode of Arrival: Ambulatory Timing Onset of Chief Complaint: 05/15/19 Context Onset: Spontaneous Recent: None Possible Ingestion: denies ETOH : No History of: Abdominal Operation and Diabetes Quality Quality: denies Bilious, Bloody and Coffee Grounds Associated Signs and Symptoms Abdominal Pain Quality: Sharp Abdominal Pain Location: Diffuse, RLQ and LLQ Symptoms: Abdominal Pain; denies Diarrhea, Hematemesis, Melena, Hematochezia and Fever PMH PMH Past Medical History: Yes Past Medical History: Asthma, Diabetes and Hypertension Past Surgical History: Yes 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 Family History History of Family Medical Conditions: Yes Family Medical History: Diabetes Mellitus and Hypertension Social History Type of Tobacco Use: None Alcohol Use: None Do you use any recreational Drugs:: No Lives With: Spouse Lives Where: Home infectious screening Have you traveled outside the country in the last 6 months?: No Isolation: Standard ROS Review of Systems Constitutional: Chills and Loss of Appetite; negative Fever and Weakness Eyes: negative Blurred Vision ENTM: negative Nose Congestion Respiratoy: negative Non-Productive Cough and Short of Breath Gastrointestinal/Abdominal: Abdominal Pain, Nausea and Vomiting; negative Constipation and Diarrhea Genitourinary: negative Dysuria and Hematuria Neurological: negative Headache and Speech Problem Musculoskeletal: negative Muscle Pain Hematologic/Lymphatic: negative Easy Bruising Endocrine: Unexplained Weight Gain and Decreased Appetite; negative Unexplained Weight Loss Psychiatric: negative Depression All Other Systems: Reviewed and Negative PE Vital Signs Vitals: Temperature 97.9 F Pulse Rate 72 Respiratory Rate 20 Blood Pressure [Right Arm] 181/82 Blood Pressure [Left Arm] 149/72 Blood Pressure 166/74 O2 Sat by Pulse Oximetry 96 General Limitations: No Limitations General Appearance: Alert and In No Apparent Distress Head Head Exam: Normal Inspection and Normocephalic Eyes Eye exam: Normal Appearance and EOMI; negative Scleral Icterus ENT ENT Exam: Normal Exam, Normal Oropharynx and Mucous Membranes Dry Neck Neck Exam: Normal Inspection Respiratory Respiratory Exam: Normal Lung Sounds Bilat Respiratory Exam: Bilateral: Clear to Auscultation Cardiovascular Cardiovascular Exam: Regular Rate, Normal Rhythm and Normal Heart Sounds Abdominal Exam Abdominal Exam: Soft, Distention, Tenderness (lower abd), Dimnished Bowel Sounds and Hernia (large incisional, not reducible); negative Normal Inspection, Guarding and Rigidity Abdominal Tenderness: RLQ and LLQ Back Back Exam: Normal Inspection and Full ROM Neurologic Neurological Exam: Alert, Oriented X3, Normal Gait and Reflexes Normal; negative Motor Sensory Deficit Psychiatric Psychiatric Exam: Normal Affect and Normal Mood Skin Skin Exam: Warm, Dry, Intact and Normal Color; negative Rash MDM Additional Information Obtained Additional Information Obtained From: Old Records Differential Diagnosis Differential Diagnosis: Considerations may Include:: Bowel Obstruction, Gastritis and Other (incarcerated/strangulated hernia, abd pain) COURSE Reevaluation 1st: Unchanged (pt still nauseated and in pain) Consultation Consultation Comments: 00:[address] jacobo and will see in the hospital in am. 00:[address] Newell and will admit Education/Counseling Education/Counseling: Patient, Education and Counseling Educated On: Treatment, Diagnosis, Prognosis and Needs for Follow Up (general surgery, pcp) ROR Labs Reviewed Laboratory Results Reviewed?: Yes Result Diagrams: 05/16/19 20:45 05/16/19 20:45 Laboratory: WBC 8.0 X10^3/uL (3.6-10.0) 05/16/19 20:45 RBC 4.96 X10^6/uL (3.5-5.4) 05/16/19 20:45 Hgb 12.5 g/dL (12.0-16.0) 05/16/19 20:45 Hct 38.1 % (36.0-47.0) 05/16/19 20:45 MCV 76.8 fL (80.0-100.0) L 05/16/19 20:45 MCH 25.2 pg (27.0-34.0) L 05/16/19 20:45 MCHC 32.8 g/dL (33.0-35.0) L 05/16/19 20:45 RDW 17.6 % (11.6-16.5) H 05/16/19 20:45 Plt Count 332 X10^3/uL (150.0-450.0) 05/16/19 20:45 Plt Count Comment Adequate (ADEQUATE) 05/16/19 20:45 MPV 8.7 fL (7.4-11.0) 05/16/19 20:45 Neut % (Auto) 74.9 % (42.0-75.0) 05/16/19 20:45 Lymph % (Auto) 12.9 % (21.0-51.0) L 05/16/19 20:45 [place] % (Auto) 9.7 % (0.0-13.0) 05/16/19 20:45 Eos % (Auto) 1.0 % (0.9-2.9) 05/16/19 20:45 Baso % (Auto) 1.5 % (0.2-1.0) H 05/16/19 20:45 Neut # (Auto) 6.0 x10^3/uL (2.2-4.8) H 05/16/19 20:45 Lymph # (Auto) 1.0 X10^3/uL (1.3-2.9) L 05/16/19 20:45 [place] # (Auto) 0.8 x10^3/uL (0.3-0.8) 05/16/19 20:45 Eos # (Auto) 0.1 x10^3/uL (0.0-0.2) 05/16/19 20:45 Baso # (Auto) 0.1 X10^3/uL (0.0-0.1) 05/16/19 20:45 Absolute Nucleated RBC 0.0 /100WBC 05/16/19 20:45 Plt Morphology Comment Normal (NORMAL) 05/16/19 20:45 RBC Morphology Abnormal (NORMAL) A 05/16/19 20:45 Hypochromasia Slight A 05/16/19 20:45 Anisocytosis Slight A 05/16/19 20:45 Ovalocytes Present 05/16/19 20:45 Sodium 139 mmol/L (136-145) 05/16/19 20:45 Corrected Sodium 142 mmol/L (136-145) 05/16/19 20:45 Potassium 3.8 mmol/L (3.5-5.1) 05/16/19 20:45 Chloride 100 mmol/L (98-107) 05/16/19 20:45 Carbon Dioxide 28.3 mmol/L (21-32) 05/16/19 20:45 BUN 13 mg/dL (7-18) 05/16/19 20:45 Creatinine 0.99 mg/dL (0.55-1.02) 05/16/19 20:45 Est GFR (MDRD) Af Amer > 60 (>60) 05/16/19 20:45 Est GFR (MDRD) Non-Af > 60 (>60) 05/16/19 20:45 Glucose 227 mg/dL (65-99) H 05/16/19 20:45 Calcium 9.3 mg/dL (8.5-10.1) 05/16/19 20:45 Corrected Calcium TNP 05/16/19 20:45 Total Bilirubin 0.40 mg/dL (0.2-1.0) 05/16/19 20:45 AST 16 Units/L (15-37) 05/16/19 20:45 ALT 17 Units/L (12-78) 05/16/19 20:45 Alkaline Phosphatase 102 Units/L (46-116) 05/16/19 20:45 Total Protein 8.3 g/dL (6.4-8.2) H 05/16/19 20:45 Albumin 4.1 g/dL (3.4-5.0) 05/16/19 20:45 Globulin 4.2 g/dL (2.5-4.5) 05/16/19 20:45 Albumin/Globulin Ratio 1.0 Ratio (1.1-2.1) L 05/16/19 20:45 Lipase 210 Units/L (73-393) 05/16/19 20:45 Other Results Comments: CBC wnl, BMP wnl Glu 227, LFT wnl Lipase 210 CT a/p: High-grade small bowel obstruction w/ transition point within bowel containing ventral hernia Opioid Opioid Risk Tool Age (Kei box if 16-45): No Total: 0 Total Score Risk Category: Low Risk Copyright: [employer] predicting aberrant behaviors Diagnosis Discharge Problem: Small bowel obstruction, Ventral hernia with bowel obstruction Type 2 diabetes mellitus Qualifiers: Diabetes mellitus ad terminal makeup operator insulin use: with ad terminal makeup operator use Diabetes mellitus complication status: with other specified complication Qualified Code(s): E11.69 - Type 2 diabetes mellitus with other specified complication Instructions Forms: Excuse From Work ADDITIONAL NOTES Additional Notes Additional Notes: I have personally reviewed your medications, lab results, imaging and time was spent discussion results. Patient educated on their health issue. They verbalized their understanding and agreed with plan of care. Condition: Stable Disposition: Admit
[2019-05-16] MEDS ORDERED: NS 1000 ML 1,000 ML IV ONE (20:36)
[2019-05-16] MEDS ORDERED: ZOFRAN INJ 4 MG VIAL IVP ONE (20:37)
[2019-05-16] MEDS ORDERED: ZOFRAN INJ 4 MG VIAL ONE (20:39)
[2019-05-16] MEDS ORDERED: NS 1000 ML 1,000 ML ONE (20:39)
[2019-05-16 20:53] LABS: BASOPHILS # (AUTO) 0.1 X10^3/uL (0.0-0.1); BASOPHILS % (AUTO) 1.5 % (0.2-1.0); EOSINOPHILS # (AUTO) 0.1 x10^3/uL (0.0-0.2); HEMATOCRIT 38.1 % (36.0-47.0); HEMOGLOBIN 12.5 g/dL (12.0-16.0); LYMPHOCYTES % (AUTO) 12.9 % (21.0-51.0); MEAN CORPUSCULAR HEMOGLOBIN 25.2 pg (27.0-34.0); MEAN CORPUSCULAR HGB CONC 32.8 g/dL (33.0-35.0); MEAN CORPUSCULAR VOLUME 76.8 fL (80.0-100.0); MEAN PLATELET VOLUME 8.7 fL (7.4-11.0); MONOCYTES # (AUTO) 0.8 x10^3/uL (0.3-0.8); MONOCYTES % (AUTO) 9.7 % (0.0-13.0); NEUTROPHILS % (AUTO) 74.9 % (42.0-75.0); PLATELET COUNT 332 X10^3/uL (150.0-450.0); RED BLOOD COUNT 4.96 X10^6/uL (3.5-5.4); RED CELL DISTRIBUTION WIDTH 17.6 % (11.6-16.5)
[2019-05-16 20:55] LABS: PLATELET MORPHOLOGY COMMENT NORMAL (NORMAL)
[2019-05-16 20:58] LABS: ANISOCYTOSIS SLIGHT; HYPOCHROMASIA SLIGHT; OVALOCYTES PRESENT
[2019-05-16 21:04] LABS: ALANINE AMINOTRANSFERASE 17 Units/L (12-78); ALBUMIN 4.1 g/dL (3.4-5.0); ALKALINE PHOSPHATASE 102 Units/L (46-116); ASPARTATE AMINO TRANSFERASE 16 Units/L (15-37); BLOOD UREA NITROGEN 13 mg/dL (7-18); CALCIUM 9.3 mg/dL (8.5-10.1); CARBON DIOXIDE 28.3 mmol/L (21-32); CHLORIDE 100 mmol/L (98-107); COR NA(FOR HYPERGLY) 142 mmol/L (136-145); CREATININE 0.99 mg/dL (0.55-1.02); LIPASE 210 Units/L (73-393); SODIUM 139 mmol/L (136-145); TOTAL PROTEIN 8.3 g/dL (6.4-8.2); eGFR NON BLACK RACES > 60 (>60)
--- NOTE | 2019-05-16 23:51 | CT ---
CT abdomen and pelvis with contrast Indication: Abdominal pain Comparison: 03/31/2019 Technique: CT images of the abdomen and pelvis were obtained with IV and oral contrast. Automatic exposure control was utilized. Findings: The lung bases are essentially clear. No acute osseous abnormality. The liver and spleen enhance normally. The gallbladder, spleen, pancreas, adrenals, and kidneys are unremarkable. There is small hiatal hernia of the stomach. The stomach is mildly dilated, but otherwise unremarkable. There are multiple dilated loops of proximal and mid small bowel with mild mesenteric edema, with transition point within the large abdominal wall hernia (for example coronal images 20 and 21; axial image 77). This bowel loops demonstrate small bowel feces sign just proximal to the transition. The large bowel containing hernia is otherwise not significantly changed from prior, as visualized; the lower portion is excluded. The more distal small bowel loops are relatively decompressed. There is bowel gas and fecal material within the normal caliber colon. Normal appendix is noted. No pneumatosis or free air is identified. The urinary bladder and rectum are unremarkable. Impression: High-grade small bowel obstruction with transition point within the bowel containing ventral hernia, as above. Surgical evaluation recommended. Reported By:
[2019-05-17] MEDS ORDERED: ZOFRAN INJ 4 MG VIAL IVP PRN (00:27)
[2019-05-17] MEDS ORDERED: PROTONIX INJ 40 MG VIAL IVP ONE (00:56)
[2019-05-17] MEDS ORDERED: PROTONIX INJ 40 MG VIAL ONE (02:01)
[2019-05-17] MEDS: MORPHINE SULFATE INJ 2 MG INJ IVP PRN ×3 (02:13→11:17)
[2019-05-17] MEDS: NS 1000 ML 1,000 ML IV SCH ×2 (02:14→14:13)
--- NOTE | 2019-05-17 02:14 | RAD ---
AP abdomen Indication: Small-bowel obstruction Comparison: CT 05/16/2019 Findings: The tip and distal side port of the gastric tube overlie the distal portion of the stomach, in satisfactory position. A few dilated small bowel loops are noted, similar to the recent CT. No gross free air. Impression: NG tube in satisfactory position. Reported By:
[2019-05-17] MEDS ORDERED: HumaLOG SC PRN (03:15)
[2019-05-17] MEDS ORDERED: OTBS NS XX SCH (03:15)
[2019-05-17] MEDS ORDERED: HumuLIN R SUBCUT PRN (03:33)
[2019-05-17 03:35] VITALS: BMI 38.2
[2019-05-17] MEDS ORDERED: FLAGYL IV PREMIX 500 MG BAG 500 MG/100 ML BAG IV ONE (03:40)
[2019-05-17] MEDS: FLAGYL IV PREMIX 500 MG BAG 500 MG/100 ML BAG IV SCH ×3 (03:46→14:32)
[2019-05-17] MEDS ORDERED: NORMODYNE INJ 20 MG VIAL IV PRN (04:46)
[2019-05-17] MEDS ORDERED: NORMODYNE INJ 100 MG VIAL ONE (04:50)
[2019-05-17 05:04] LABS: BLOOD UREA NITROGEN 11 mg/dL (7-18); CARBON DIOXIDE 26.6 mmol/L (21-32); CHLORIDE 100 mmol/L (98-107); COR NA(FOR HYPERGLY) 142 mmol/L (136-145); SODIUM 138 mmol/L (136-145); eGFR NON BLACK RACES > 60 (>60)
[2019-05-17 05:05] LABS: BASOPHILS % (AUTO) 0.3 % (0.2-1.0); EOSINOPHILS % (AUTO) 0.4 % (0.9-2.9); HEMATOCRIT 37.4 % (36.0-47.0); HEMOGLOBIN 12.3 g/dL (12.0-16.0); MEAN CORPUSCULAR HEMOGLOBIN 25.3 pg (27.0-34.0); MEAN CORPUSCULAR HGB CONC 32.8 g/dL (33.0-35.0); MEAN CORPUSCULAR VOLUME 77.1 fL (80.0-100.0); MEAN PLATELET VOLUME 9.6 fL (7.4-11.0); MONOCYTES # (AUTO) 0.8 x10^3/uL (0.3-0.8); NEUTROPHILS # (AUTO) 6.4 x10^3/uL (2.2-4.8); NEUTROPHILS % (AUTO) 77.3 % (42.0-75.0); PLATELET COUNT 333 X10^3/uL (150.0-450.0); RED BLOOD COUNT 4.85 X10^6/uL (3.5-5.4); RED CELL DISTRIBUTION WIDTH 17.4 % (11.6-16.5); WHITE BLOOD COUNT 8.2 X10^3/uL (3.6-10.0)
[2019-05-17] MEDS ORDERED: POTASSIUM CHLORIDE LIQ 20 MEQ UDC PO PRN (05:16)
[2019-05-17] MEDS ORDERED: POTASSIUM CHL 60 MEQ/NS 0.45% 500 ML IV PRN (05:16)
[2019-05-17] MEDS ORDERED: POTASSIUM CHL 40 MEQ/NS 0.45% 500 ML IV PRN (05:16)
[2019-05-17] MEDS ORDERED: K-DUR TAB 20 MEQ PO PRN (05:16)
[2019-05-17] MEDS ORDERED: KLOR-CON PO PRN (05:16)
[2019-05-17] MEDS ORDERED: MICRO K EXTEN CAP 10 MEQ PO PRN (05:16)
[2019-05-17 05:22] LABS: HYPOCHROMASIA 1+; OVALOCYTES SLIGHT; PLATELET MORPHOLOGY COMMENT NORMAL (NORMAL); POIKILOCYTOSIS SLIGHT
[2019-05-17] MEDS: K-RIDER 10 MEQ/NS 100 ML 10 MEQ/100 ML BAG IV PRN ×2 (06:12→07:20)
[2019-05-17] MEDS: HumuLIN R SUBCUT PRN ×3 (06:31→17:22)
--- NOTE | 2019-05-17 09:41 | RAD ---
HISTORY: Bowel obstruction Study: Single-view of the chest Comparison: September 06, 2017 Findings: The trachea is midline. The cardiac silhouette is unremarkable. The lungs are clear without focal infiltrate or effusion. Nasogastric tube placement is noted. The distal aspect of the nasogastric tube appears to extend beyond the inferior margin of the image overlying the left upper quadrant of the abdomen. IMPRESSION: 1. No acute cardiopulmonary disease. Reported By:
[2019-05-17] MEDS ORDERED: APRESOLINE INJ 20 MG VIAL IVP ONE (09:52)
--- NOTE | 2019-05-17 09:57 | DR.H&P ---
H&P - History & Physical for Day of: H&P Date: 05/17/19 - Chief Complaint Chief Complaint: ABDOMINAL PAIN, N/V - History of Present Illness History of Present Illness: 58 BF ER ADMISSION WITH CO for n/v and abd pain. Pt reports having worsening abd pain with n/v and chills today. She was seen her last night and abd XR was unremarkable. Today she reports having intermittent lower abdominal pain with large hernia that has been present for a long time. The pain is sharp 8/10 and her she has not had any BM in the last day. She reports prior BTL/Hyst surgery prior to developing the surgery. Denies CP, SOB, blood in stool. CT a/p 03/2019 showed large pannus with ventral hernia with transverse colon no strangulation. PT HAD CT ABD/PELVIS WITH VENTRAL HERNIA AND HIGH GRADE OBSTRUCTION. NG TUBE PLACED, PT ADMITTED FOR EVALUATION AND TREATMENT OF ACUTE CANDIE AND SURGICAL CONSULT. 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 - Family History Family Medical History: Diabetes Mellitus, Hypertension - Social History Does patient currently use any type of tobacco product: No Have you used tobacco products in the last 12 months: No Type of Tobacco Use: None Alcohol Use: None Drug Use: None - Medications Home Medications: latex Allergy (Verified 05/17/19 00:39) Penicillins Allergy (Verified 05/17/19 00:39) sulfamethoxazole [From Bactrim] Allergy (Verified 05/17/19 00:39) trimethoprim [From Bactrim] Allergy (Verified 05/17/19 00:39) CONTINUE taking the following medications amlodipine 10 mg PO DAILY 05/17/19 [History] glimepiride 4 mg PO BID 05/17/19 [History] hydrochlorothiazide 25 mg PO DAILY 05/17/19 [History] - Review of Systems Constitutional: No Symptoms Reported Eyes: No Symptoms Reported ENT: No Symptoms Reported Respiratory: No Symptoms Reported Gastrointestinal: Nausea, Vomiting, Abdominal Pain Genitourinary: No Symptoms Reported Musculoskeletal: Back Pain Skin: No Symptoms Reported Neurological: No Symptoms Reported - Physical Exam Vital Signs: Temperature 99.4 F Pulse Rate [Left] 77 Pulse Rate 72 Respiratory Rate 18 Blood Pressure [Right Arm] 181/82 Blood Pressure [Left Arm] 199/93 Blood Pressure 166/74 O2 Sat by Pulse Oximetry 95 Oriented: Normal Eyes: Normal Ear: Normal Nose: Normal Throat: Normal Respiratory: Clear Throughout Cardiovascular: Normal, Edema. negative: Murmur : Normal Auscultation: Bowel Sounds: Increased Palpation: Other (LARGE VENTRAL HERNIA) Tenderness: Diffuse Skin: Normal Musculoskeletal: Back:Lumbar Psychiatric: Normal Mood Description: Calm Speech Pattern: Clear, Appropriate - Assessment/Plan (1) Small bowel obstruction Status: Acute Plan: ADMIT, NPO. NG TUBE AT LIS. PAIN AND NAUSEA CONTROL, BP MONITORING AND BP CONTROL. STARTED ON LABETALOL PROTOCOL IN ER, GENTLE IV HYDRATION. CXR ON ADMISSION, EKG FOR SURGICAL CLEARANCE. CONSULT DR PAREKH FOR SURGICAL EVALUATION. (2) Ventral hernia with bowel obstruction Status: Acute (3) Type 2 diabetes mellitus Qualifiers: Diabetes mellitus [facility] insulin use: with termite control service representative use Diabetes mellitus complication status: with other specified complication Qualified Code(s): E11.69 - Type 2 diabetes mellitus with other specified complication; Z79.4 - terminal computer operator (current) use of insulin Status: Acute (4) Hypertension Qualifiers: Hypertension type: essential hypertension Qualified Code(s): I10 - Essential (primary) hypertension Status: Acute - Allergies Allergies/Adverse Reactions: Allergies Allergy/AdvReac Type Severity Reaction Status Date / Time latex Allergy Verified 05/17/19 00:39 Penicillins Allergy Verified 05/17/19 00:39 sulfamethoxazole Allergy Verified 05/17/19 00:39 [From Bactrim] trimethoprim [From Bactrim] Allergy Verified 05/17/19 00:39
[2019-05-17] MEDS ORDERED: APRESOLINE INJ 20 MG VIAL IVP PRN (15:28)
--- NOTE | 2019-05-17 16:11 | DR.PROGNOT ---
Hospital Progress Notes - Progress Note for Day of: Progress Note Date: 05/17/19 - Chief Complaint Chief Complaint: abdominal pain is less after placing NGT . abdominal xray and CT showed partial SBO with large incisional hernia . - Past Medical Family Social History Past Med/Fam/Surg Hx: No changes since H&P Allergies: Allergies latex Allergy (Verified 05/17/19 00:39) Penicillins Allergy (Verified 05/17/19 00:39) sulfamethoxazole [From Bactrim] Allergy (Verified 05/17/19 00:39) trimethoprim [From Bactrim] Allergy (Verified 05/17/19 00:39) - Review Of Systems ROS: No change since H&P - Vital Signs Vital Signs: Temperature 99.1 F Pulse Rate [Left] 72 Pulse Rate 72 Respiratory Rate 18 Blood Pressure [Right Arm] 181/82 Blood Pressure [Left Arm] 154/71 Blood Pressure 166/74 O2 Sat by Pulse Oximetry 98 - Physical Exam Oriented: Normal Eyes: Normal Ear: Normal Nose: Normal Throat: Normal Cardiovascular: Normal, Edema. negative: Murmur : Normal GI:Auscultation: Increased GI:Palpation: Other (LARGE VENTRAL HERNIA with moderate tenderness . no rebound or rigidity .) GI: Tenderness: Diffuse Skin: Normal Musculoskeletal: Back:Lumbar Psychiatric: Normal Mood Description: Calm Speech Pattern: Clear, Appropriate - Laboratory and Diagnostics Result Diagrams: 05/17/19 04:26 05/17/19 04:26 Labs: Laboratory WBC 8.2 X10^3/uL (3.6-10.0) 05/17/19 04:26 RBC 4.85 X10^6/uL (3.5-5.4) 05/17/19 04:26 Hgb 12.3 g/dL (12.0-16.0) 05/17/19 04:26 Hct 37.4 % (36.0-47.0) 05/17/19 04:26 MCV 77.1 fL (80.0-100.0) L 05/17/19 04:26 MCH 25.3 pg (27.0-34.0) L 05/17/19 04:26 MCHC 32.8 g/dL (33.0-35.0) L 05/17/19 04:26 RDW 17.4 % (11.6-16.5) H 05/17/19 04:26 Plt Count 333 X10^3/uL (150.0-450.0) 05/17/19 04:26 Plt Count Comment Adequate (ADEQUATE) 05/17/19 04:26 MPV 9.6 fL (7.4-11.0) 05/17/19 04:26 Neut % (Auto) 77.3 % (42.0-75.0) H 05/17/19 04:26 Lymph % (Auto) 12.0 % (21.0-51.0) L 05/17/19 04:26 [place] % (Auto) 10.0 % (0.0-13.0) 05/17/19 04:26 Eos % (Auto) 0.4 % (0.9-2.9) L 05/17/19 04:26 Baso % (Auto) 0.3 % (0.2-1.0) 05/17/19 04:26 Neut # (Auto) 6.4 x10^3/uL (2.2-4.8) H 05/17/19 04:26 Lymph # (Auto) 1.0 X10^3/uL (1.3-2.9) L 05/17/19 04:26 [place] # (Auto) 0.8 x10^3/uL (0.3-0.8) 05/17/19 04:26 Eos # (Auto) 0.0 x10^3/uL (0.0-0.2) 05/17/19 04:26 Baso # (Auto) 0.0 X10^3/uL (0.0-0.1) 05/17/19 04:26 Absolute Nucleated RBC 0.1 /100WBC 05/17/19 04:26 Plt Morphology Comment Normal (NORMAL) 05/17/19 04:26 RBC Morphology Abnormal (NORMAL) A 05/17/19 04:26 Hypochromasia 1+ A 05/17/19 04:26 Poikilocytosis Slight A 05/17/19 04:26 Anisocytosis Slight A 05/16/19 20:45 Ovalocytes Slight A 05/17/19 04:26 Sodium 138 mmol/L (136-145) 05/17/19 04:26 Corrected Sodium 142 mmol/L (136-145) 05/17/19 04:26 Potassium 3.5 mmol/L (3.5-5.1) 05/17/19 04:26 Chloride 100 mmol/L (98-107) 05/17/19 04:26 Carbon Dioxide 26.6 mmol/L (21-32) 05/17/19 04:26 BUN 11 mg/dL (7-18) 05/17/19 04:26 Creatinine 0.90 mg/dL (0.55-1.02) 05/17/19 04:26 Est GFR (MDRD) Af Amer > 60 (>60) 05/17/19 04:26 Est GFR (MDRD) Non-Af > 60 (>60) 05/17/19 04:26 Glucose 258 mg/dL (65-99) H 05/17/19 04:26 POC Glucose (mg/dL) 171 mg/dL (65-99) H 05/17/19 11:19 Calcium 9.0 mg/dL (8.5-10.1) 05/17/19 04:26 Corrected Calcium TNP 05/16/19 20:45 Magnesium 1.7 mg/dL (1.7-2.9) 05/17/19 04:26 Total Bilirubin 0.40 mg/dL (0.2-1.0) 05/16/19 20:45 AST 16 Units/L (15-37) 05/16/19 20:45 ALT 17 Units/L (12-78) 05/16/19 20:45 Alkaline Phosphatase 102 Units/L (46-116) 05/16/19 20:45 Total Protein 8.3 g/dL (6.4-8.2) H 05/16/19 20:45 Albumin 4.1 g/dL (3.4-5.0) 05/16/19 20:45 Globulin 4.2 g/dL (2.5-4.5) 05/16/19 20:45 Albumin/Globulin Ratio 1.0 Ratio (1.1-2.1) L 05/16/19 20:45 Lipase 210 Units/L (73-393) 05/16/19 20:45 - Assessment and Plan 1: large incisional hernia with partial SBO . DM , HTN , Obesity .abdominal adhesions . will keep NPO , NGT and plan for transfer .. - Problem Patient Problems: Patient Problems Small bowel obstruction (Acute) K56.609 Ventral hernia with bowel obstruction (Acute) K43.6 Type 2 diabetes mellitus (Acute) E11.9
[2019-05-17 16:15] VITALS: BP 171/79
[2019-05-17] MEDS ORDERED: SNACK - Diabetic Appropriate PO SCH (20:00)
--- NOTE | 2019-05-26 20:57 | PCM.DCPLAN ---
Discharge Summary - Admission Date Date of Admission: 05/17/19 - Discharge Date Discharge Date: 05/17/19 - Admission Diagnoses (1) Ventral hernia with bowel obstruction Status: Acute (2) Abdominal pain Status: Acute (3) Type 2 diabetes mellitus Status: Acute - Discharge Diagnoses Discharge Diagnosis: same as admission diagnosis - Discharge Medications Discharge Medications: Home Medication List amlodipine 10 mg PO DAILY 05/17/19 [History] glimepiride 4 mg PO BID 05/17/19 [History] hydrochlorothiazide 25 mg PO DAILY 05/17/19 [History] Prescriptions: - Hospital Course Vital Signs: Temperature 99.2 F Pulse Rate [Left] 74 Pulse Rate 72 Respiratory Rate 18 Blood Pressure [Right Arm] 181/82 Blood Pressure [Left Arm] 171/79 Blood Pressure 166/74 O2 Sat by Pulse Oximetry 94 Latest Lab Results: Laboratory Last Values WBC 8.2 X10^3/uL (3.6-10.0) 05/17/19 04:26 RBC 4.85 X10^6/uL (3.5-5.4) 05/17/19 04:26 Hgb 12.3 g/dL (12.0-16.0) 05/17/19 04:26 Hct 37.4 % (36.0-47.0) 05/17/19 04:26 MCV 77.1 fL (80.0-100.0) L 05/17/19 04:26 MCH 25.3 pg (27.0-34.0) L 05/17/19 04:26 MCHC 32.8 g/dL (33.0-35.0) L 05/17/19 04:26 RDW 17.4 % (11.6-16.5) H 05/17/19 04:26 Plt Count 333 X10^3/uL (150.0-450.0) 05/17/19 04:26 Plt Count Comment Adequate (ADEQUATE) 05/17/19 04:26 MPV 9.6 fL (7.4-11.0) 05/17/19 04:26 Neut % (Auto) 77.3 % (42.0-75.0) H 05/17/19 04:26 Lymph % (Auto) 12.0 % (21.0-51.0) L 05/17/19 04:26 [place] % (Auto) 10.0 % (0.0-13.0) 05/17/19 04:26 Eos % (Auto) 0.4 % (0.9-2.9) L 05/17/19 04:26 Baso % (Auto) 0.3 % (0.2-1.0) 05/17/19 04:26 Neut # (Auto) 6.4 x10^3/uL (2.2-4.8) H 05/17/19 04:26 Lymph # (Auto) 1.0 X10^3/uL (1.3-2.9) L 05/17/19 04:26 [place] # (Auto) 0.8 x10^3/uL (0.3-0.8) 05/17/19 04:26 Eos # (Auto) 0.0 x10^3/uL (0.0-0.2) 05/17/19 04:26 Baso # (Auto) 0.0 X10^3/uL (0.0-0.1) 05/17/19 04:26 Absolute Nucleated RBC 0.1 /100WBC 05/17/19 04:26 Plt Morphology Comment Normal (NORMAL) 05/17/19 04:26 RBC Morphology Abnormal (NORMAL) A 05/17/19 04:26 Hypochromasia 1+ A 05/17/19 04:26 Poikilocytosis Slight A 05/17/19 04:26 Anisocytosis Slight A 05/16/19 20:45 Ovalocytes Slight A 05/17/19 04:26 Sodium 138 mmol/L (136-145) 05/17/19 04:26 Corrected Sodium 142 mmol/L (136-145) 05/17/19 04:26 Potassium 3.5 mmol/L (3.5-5.1) 05/17/19 04:26 Chloride 100 mmol/L (98-107) 05/17/19 04:26 Carbon Dioxide 26.6 mmol/L (21-32) 05/17/19 04:26 BUN 11 mg/dL (7-18) 05/17/19 04:26 Creatinine 0.90 mg/dL (0.55-1.02) 05/17/19 04:26 Est GFR (MDRD) Af Amer > 60 (>60) 05/17/19 04:26 Est GFR (MDRD) Non-Af > 60 (>60) 05/17/19 04:26 Glucose 258 mg/dL (65-99) H 05/17/19 04:26 POC Glucose (mg/dL) 188 mg/dL (65-99) H 05/17/19 16:58 Calcium 9.0 mg/dL (8.5-10.1) 05/17/19 04:26 Corrected Calcium TNP 05/16/19 20:45 Magnesium 1.7 mg/dL (1.7-2.9) 05/17/19 04:26 Total Bilirubin 0.40 mg/dL (0.2-1.0) 05/16/19 20:45 AST 16 Units/L (15-37) 05/16/19 20:45 ALT 17 Units/L (12-78) 05/16/19 20:45 Alkaline Phosphatase 102 Units/L (46-116) 05/16/19 20:45 Total Protein 8.3 g/dL (6.4-8.2) H 05/16/19 20:45 Albumin 4.1 g/dL (3.4-5.0) 05/16/19 20:45 Globulin 4.2 g/dL (2.5-4.5) 05/16/19 20:45 Albumin/Globulin Ratio 1.0 Ratio (1.1-2.1) L 05/16/19 20:45 Lipase 210 Units/L (73-393) 05/16/19 20:45 - Hospital Course Hospital Course: 58 BF ER ADMISSION WITH CO for n/v and abd pain. Pt reports having worsening abd pain with n/v and chills today. She was seen her last night and abd XR was unremarkable. Today she reports having intermittent lower abdominal pain with large hernia that has been present for a long time. The pain is sharp 8/10 and her she has not had any BM in the last day. She reports prior BTL/Hyst surgery prior to developing the surgery. Denies CP, SOB, blood in stool. CT a/p 03/2019 showed large pannus with ventral hernia with transverse colon no strangulation. PT HAD CT ABD/PELVIS WITH VENTRAL HERNIA AND HIGH GRADE OBSTRUCTION. NG TUBE PLACED, FOR TREATMENT OF ACUTE CANDIE AND SURGICAL CONSULT. PAT[facility]. - Discharge Plan Disposition: 02 [facility] Health Concerns: Post Hospitalization: new medications and changes needed to prevent readmission or further decline. Pt educated and given instructions on all concerns. Condition: Stable - Follow ups/Referrals Follow ups/Referrals: SOPHIA,None [STAFF PHYSICIAN] - 3 days - Instructions Forms: Excuse From Work
== END 2019-05-17 19:00 | disposition short-term general hospital (02) | DRG 389 ==
LOC: ER 19:54 → MED/SURG 19:54 → OBSVTOIN 05-17 00:27 → MED/SURG 05-17 02:24
PROVIDERS: ADMIT Internal Medicine; ATTEND Internal Medicine
DX: Z79.4 Long term (current) use of insulin; R11.2 Nausea with vomiting, unspecified; K56.600 Partial intestinal obstruction, unspecified as to cause; I10 Essential (primary) hypertension; K43.6 Other and unspecified ventral hernia with obstruction, without gangrene; E11.65 Type 2 diabetes mellitus with hyperglycemia
CPT/HCPCS: 36415; 71010; 71045; 74000; 74018; 74177; 80048; 80053; 83690; 83735; 85025; 93005; 96365; 96374; 96375; 97162; 99284; A4216; A4222; C9113; S0030; J1815; J2270; J2405; J3480; J7030